=== PATIENT | female | born 1980 | race Hispanic/Latino ===

== ENCOUNTER 2016-06-07 14:33 | Emergency (ER) | payer OTHER ==
[~2016-06-07] VITALS: Ht 144.8 cm; Wt 62.1 kg
[~2016-06-07 14:33] MED LIST: BACTRIM,SEPT1 TABLET PO; CEFDINIR300 MG PO; COLACE100 MG PO; DOCUSATE SODIU100 MG PO; ENDOCET 5-3251 EACH PO; FLEXERIL10 MG PO; FLEXERIL5 MG PO; FLINTSTONES M100 MCG PO; FLINTSTONES1 EACH PO; HYDROCODON-ACE1 EAC7 PO; IBUPROFEN800 MG PO; MOTRIN800 MG PO; Motrin PO; PREDNISONE10 MG PO; PREDNISONE20 MG PO; PROVENTIL,2.5 MG/0.5 IH; PYRIDIUM100 MG PO; Percocet 5/325,Endoc PO; SYMBICORT60 INHALAT IH; ZITHROMAX500 MG PO
[2016-06-07 16:15] LABS: HEMATOCRIT 37.7 % (36.0-46.0); MCV 91.3 FL (83-99); PLATELET COUNT 405 K/uL (156-360); RBC DIS.WIDTH-CV 12.8 % (11.8-14.6); RED BLOOD COUNT 4.13 M/uL (3.80-5.20); WHITE BLOOD COUNT 17.4 K/uL (4.1-10.2)
[2016-06-07 16:18] LABS: EOSINOPHIL (%) 0.1 % (0-5); IMMATURE GRANULOCYTE (%) 1.4 % (0.0-0.7); IMMATURE GRANULOCYTE COUNT 2.4 K/uL; LYMPHOCYTE COUNT 2.1 K/uL (1.0-2.8); MONOCYTE COUNT 2.1 K/uL (0-0.8); NEUTROPHIL (%) 74.2 % (45-76); NEUTROPHIL COUNT 12.9 K/uL (1.8-6.4)
[2016-06-07 16:26] LABS: CHLORIDE 102 mEq/L (99-109); POTASSIUM 4.1 mEq/L (3.7-5.4); SODIUM 138 mEq/L (136-147)
[2016-06-07 16:29] LABS: GLUCOSE 109 mg/dL (70-99)
[2016-06-07 16:30] LABS: ANION GAP 15 MEQ/L (2-14)
[2016-06-07 16:31] LABS: TOTAL BILIRUBIN 0.3 mg/dL (0.0-1.0)
[2016-06-07 16:32] LABS: ALKALINE PHOSPHATASE 91 IU/L (3-129); GFR ESTIMATE (CALCULATED) > 59 mL/min/
[2016-06-07 16:33] LABS: UREA NITROGEN (BUN) 11 mg/dL (9-23)
[2016-06-07 16:41] LABS: QUANTITATIVE HCG < 4.0 MIU/ML
[2016-06-07] MEDS ORDERED: KEPPRA500 MG PO (19:50)
[2016-06-07 20:45] VITALS: BP 123/76
== END 2016-06-07 20:46 | disposition home or self-care (01) ==
LOC: EME 14:33
PROVIDERS: Emergency Medicine
DX: G40.909 Epilepsy, unspecified, not intractable, without status epilepticus (principal); J32.4 Chronic pansinusitis; R05 Cough
CPT/HCPCS: 70450; 80053; 84702; 85025; 99281; 99284; J1885; J1953; J7050